=== PATIENT | male | born 1945 | race Caucasian/White ===

== ENCOUNTER 2016-06-14 07:27 | Day surgery (SDC) | payer OTHER ==
--- NOTE | 2016-05-31 08:22 | PREOP ---
DATE OF ADMISSION: 06/14/2016 DATE OF DICTATION: 05/23/2016 REASON FOR ADMISSION: Right inguinal hernia, right groin pain. BRIEF HISTORY: This is a 71-year-old gentleman with a longstanding history of having right inguinal hernia. Over the past several months, he states the hernia has gotten worse since his prostatism has worsened as well. The patient states he has pain when he goes to urinate in the right groin region. He has had no nausea, no vomiting. He occasionally has some discomfort with Valsalva maneuver or sitting in a flexed position for long periods of time. PAST MEDICAL HISTORY: As mentioned above, coronary artery disease, hypertension, hypercholesterolemia, eye disease and thyroid problem. PAST SURGICAL HISTORY: Patient has had 2 cardiac stents, a knee operation, and thyroid surgery. MEDICATIONS: Crestor, Coreg, Valsartan, baby aspirin, vitamins, and omega-3. SOCIAL HISTORY: The patient does not smoke. He drinks socially. ALLERGIES: None. PHYSICAL EXAMINATION: Lungs: Clear. Heart: Regular rhythm. Abdomen: Soft, nontender, nondistended. He has a chronically incarcerated umbilical hernia (incidental finding). He has a moderate sized right inguinal hernia and that is reducible in the supine position. The scrotum and testicles are within normal limits. The left groin is with a fair amount of laxity. A small hernia cannot be ruled out. IMPRESSION/PLAN: Right inguinal hernia, and right groin pain: This is a gentleman with longstanding history of having a right inguinal hernia. The hernia is worsened due to his prostatism. At this point, I would recommend proceeding with a laparoscopic right inguinal hernia repair. Due to the laxity and a small left inguinal hernia not being able to be completely ruled out on physical examination, I would recommend examination at the time of surgery. If a small left inguinal hernia was noted, it would be repaired. If no hernia is seen, a piece of mesh will in the direct inguinal space for reinforcement. Prior to surgery, the patient should be evaluated by his urologist due to worsening prostatism. He may require some type of TURP/GreenLight laser procedure prior to surgical intervention. The indications, alternatives, complications, and procedures were discussed. Questions were answered. Will plan to obtain written consent the day of surgery. KEANU HUERTA M.D. [id number] CC: Dr. Tatum Vaughn [place], [place] [phone]
[2016-06-12 10:39] VITALS: BMI 25.8
[2016-06-14] MEDS ORDERED: TAMSULOSIN HCL 0.4 MG CAP.ER.24H (FP) ONE ×2 (07:42→16:08)
[2016-06-14] MEDS ORDERED: ROCURONIUM BROMIDE 50 MG/5 ML VIAL ONE (09:55)
[2016-06-14] MEDS ORDERED: PROPOFOL 20 ML ONE (09:55)
[2016-06-14] MEDS ORDERED: ePHEDrine SULFATE 50 MG/1 ML AMPULE ONE (10:10)
[2016-06-14] MEDS ORDERED: DEXAMETHASONE SOD PHOSPHATE 4 MG/1 ML VIAL ONE (10:11)
[2016-06-14] MEDS ORDERED: ceFAZolin SODIUM 1 GM VIAL ONE (10:11)
[2016-06-14] MEDS ORDERED: ONDANSETRON 4 MG/2 ML VIAL ONE (10:11)
[2016-06-14] MEDS ORDERED: HYDROmorphone HCL/PF 1 MG/ML VIAL (FOR PYXIS CHARGING ONLY) ONE (10:30)
[2016-06-14] MEDS ORDERED: NEOSTIGMINE METHYLSULFATE 0.5 MG/ML - 10 ML MDV ONE (11:00)
[2016-06-14] MEDS ORDERED: GLYCOPYRROLATE 0.2 MG/1 ML VIAL ONE (11:00)
[2016-06-14] MEDS ORDERED: ONDANSETRON 4 MG/2 ML VIAL IVPUSH PRN (11:49)
[2016-06-14] MEDS ORDERED: oxyCODONE HCL 5 MG TABLET PO PRN (11:49)
--- NOTE | 2016-06-14 18:20 | CON.GU ---
Consult Consult Specialty:: Urology Referred by:: Sulma Reason for Consultation:: urinary retention - History of Present Illness Chief Complaint: unable to urinate History of Present Illness: 71 yo m w hx of BPH on alfuzosin x 2 weeks who developed acute urinary retention today after laparoscopic bilateral inguinal hernia repair. cons requested. - History Source History Provided By: Patient Limitations to Obtaining History: No Limitations - Alcohol/Substance Use Hx Alcohol Use: Yes (beer once a week) - Smoking History Smoking history: Never smoked Have you smoked in the past 12 months: No Home Medications - Allergies Allergies/Adverse Reactions: Allergies Allergy/AdvReac Type Severity Reaction Status Date / Time No Known Allergies Allergy Verified 06/14/16 08:25 - Home Medications Home Medications: Ambulatory Orders Alfuzosin HCl [Alfuzosin HCl ER] 10 mg PO DAILY 06/12/16 Aspirin [Aspirin EC] 81 mg PO DAILY 06/12/16 Carvedilol Phosphate [Coreg Cr] 20 mg PO DAILY 06/12/16 Krill/Om-3/Dha/Epa/Phospho/Ast [[place]-3 Krill Oil 1,000 mg] 1 each PO DAILY Multivitamins [Multivit ([facility] Formul[facility])] 1 tab PO DAILY 06/12/16 Rosuvastatin Calcium [Crestor] 20 mg PO DAILY 06/12/16 Ubidecarenone/Vitamin E Mixed [Mpu80-Rgc E 200 mg-20 Unit Sfg] 1 each PO DAILY 06/12/16 Valsartan/Hydrochlorothiazide [Diovan Hct 160-25 mg Tablet] 1 each PO DAILY Oxycodone HCl/Acetaminophen [Percocet 5-325 mg Tablet] 1 tab PO Q4H PRN #42 tablet MDD 6 06/14/16 Physical Exam- Vital Signs: Vital Signs Temperature 98.2 F 06/14/16 14:40 Pulse Rate 60 06/14/16 14:40 Respiratory Rate 16 06/14/16 14:40 Blood Pressure 144/85 06/14/16 14:40 O2 Sat by Pulse Oximetry (%) 98 06/14/16 14:40 Renal/: Yes: Bladder Distention Assessment/Plan Imp: BPH w LUTS, acute urinary retention Rec: cont alfuzosin, consider changing to rapaflo, 18 fr maza inserted w drainage of 1 liter of clear yellow urine. Pt to f/u in 1-2 days w/ his urologist in [facility] for maza removal.
[2016-06-14 19:40] VITALS: BP 145/81; PULSE 82; TEMP 98.2
--- NOTE | 2016-06-15 11:49 | OP ---
DATE OF OPERATION: 06/14/2016 PREOPERATIVE DIAGNOSES: Chronic right inguinal hernia, right groin pain. POSTOPERATIVE DIAGNOSES: Chronic right inguinal hernia, right groin pain, right indirect inguinal hernia, left indirect inguinal hernia with attenuated direct inguinal floor. PROCEDURE: Bilateral laparoscopic inguinal herniorrhaphy with mesh. SURGEON: Jh Ozuna MD TELEPHONE BETTING CLERK: Ryan Hernandez MD ANESTHESIA: Shady Hanson MD (general). ESTIMATED BLOOD LOSS: Minimal. SPECIMEN: None. INDICATION FOR PROCEDURE: This is a 71-year-old gentleman who has had discomfort and pain in the right groin region. He is noted to have a chronic right inguinal hernia. He is now here for operative repair. Patient identified and appropriately positioned on the operating room table. After placement of general anesthesia, the abdomen prepped and draped in the usual sterile fashion with ChloraPrep. An infraumbilical incision was made and deepened through the subcutaneous tissue. The fascia of the rectus muscle on the right identified, divided sharply. The muscle split under direct vision. Dissector balloon followed by a structural balloon placed. Also under direct vision, a suprapubic 11-mm port placed. The following structures on the right side identified: Pubic tubercle, Fili ligament, inferior epigastric vessel, spermatic cord, and lateral abdominal wall. During this dissection, patient was noted to have a large right indirect inguinal hernia. The direct inguinal floor was within normal limits. The indirect sac reduced back in the preperitoneal space with blunt dissection. A 4.5 x 6 piece of Versatex keyholed, placed through the superior port site. The mesh wrapped around the cord structures to reconstruct the internal ring. Laterally, mesh anchored to the anterior abdominal wall and lateral abdominal wall. Medially, mesh anchored to the anterior abdominal wall, pubic tubercle, and Fili ligament. Upon completion of the right side, similar structures on the left side identified. On the left side, the patient was noted to have an indirect inguinal hernia as well as significant attenuation of his direct inguinal floor. The indirect hernia reduced with a moderate-sized cord lipoma and the patient's cord on the left side was fairly fatty. The fat around the cord was left intact through the internal ring. Next, another 4.5 x 6 piece of Versatex mesh keyholed, placed through the superior port site. The mesh wrapped around the cord structures laterally to reconstruct the internal ring. Laterally, mesh anchored to the anterior abdominal wall and lateral abdominal wall. Medially, mesh well overlapped in the midline, anchored to the anterior abdominal wall, pubic tubercle, and Fili ligament. The preperitoneal space desufflated under direct vision. The operative field noted to be hemostatic. The anchoring system was done with the Covidien AbsorbaTack deep purchase sutures and all anterior abdominal and lateral abdominal anchors placed under direct counter-palpation. The fascia at both port sites reapproximated with interrupted 0 Vicryl suture. All skin closed with 4-0 subcuticular Biosyn followed by Dermabond. At the conclusion of the case, sponge and needle counts correct. ATTESTATION: Brief operative note handwritten on the preprinted form. [place] will be queried prior to giving any narcotics and it will be done electronically. Zaki FRANCOIS [id number] cc: Frederick Winn MD, [facility]
== END 2016-06-14 18:50 | disposition home or self-care (01) ==
LOC: FASU 07:27
PROVIDERS: ATTEND Surgery
PROC: 0YUA4JZ Supplement Bilateral Inguinal Region with Synthetic Substitute, Percutaneous Endoscopic Approach (ICD-10-PCS; principal; 2016-06-14 10:22)
DX: K40.20 Bilateral inguinal hernia, without obstruction or gangrene, not specified as recurrent (principal)
CPT/HCPCS: 94760